=== PATIENT | male | born 1990 | race Caucasian/White ===

== ENCOUNTER 2017-01-22 02:44 | Emergency (ER) | payer OTHER ==
[~2017-01-22] VITALS: Ht 177.8 cm; Wt 80.0 kg
[2017-01-22 02:53] VITALS: TEMP 36.9; Ht 177.8 cm; Wt 80.0 kg
[2017-01-22 02:55] VITALS: O2SAT 96
--- NOTE | 2017-01-22 03:08 | EMERGENCY ROOM VISIT NOTE ---
History Report prepared by Harrison: Silverio See Under the Supervision of: Dr. Nancie Bowman D.O. First contact with patient: 02:45 Chief Complaint: ALCOHOL OVERDOSE Stated Complaint: ALCOHOL OVERDOSE History of Present Illness The patient is a 26 year old male who presents to the Emergency Room via [employer] for alcohol intoxication. The patient states that he was walking home, when he fell asleep on the sidewalk. He notes that he was at [employer] , and left for home at 0200. He claims that he lives in [place], and was going to walk from [employer] to his house. The patient denies any pain or injuries from this evening. He notes a history of a chronic back pain and intermittent bladder pain. Source of History: patient Onset: Shortly [employer] Position: other (EtOH intox) Quality: other (EtOH intox) Note: Denies any traumatic injuries Review of Systems See HPI for pertinent positives & negatives. A total of 10 systems reviewed and were otherwise negative. Past Medical & Surgical Lumbar back pain Family History No significant family history Social History Smoking Status: Never Smoker Marital Status: single Housing Status: lives with roommate Occupation Status: employed Current/Historical Medications No Active Prescriptions or Reported Meds Allergies Coded Allergies: Penicillins (Unverified Allergy, Mild, 01/22/17) Physical Exam Vital Signs Date Time Temp Pulse Resp B/P (MAP) Pulse Ox O2 Delivery O2 Flow Rate FiO2 01/22/17 05:55 92 01/22/17 05:44 22 01/22/17 05:37 92 95 01/22/17 05:31 116/62 01/22/17 05:22 96 94 01/22/17 05:07 93 93 01/22/17 05:01 116/56 01/22/17 04:52 94 94 01/22/17 04:47 93 22 94 01/22/17 04:32 92 94 01/22/17 04:31 106/54 01/22/17 04:25 95 01/22/17 04:17 104 14 95 01/22/17 04:12 16 97 01/22/17 04:01 113/55 01/22/17 03:57 90 94 01/22/17 03:42 91 94 01/22/17 03:31 112/59 01/22/17 03:27 96 22 94 01/22/17 03:12 101 16 98 01/22/17 03:07 110 15 157/91 99 Room Air 01/22/17 02:59 115 26 01/22/17 02:55 96 Room Air 01/22/17 02:53 36.9 133 22 154/116 96 Room Air 01/22/17 02:52 120 01/22/17 02:50 154/116 Physical Exam Gen.: The patient is pleasant and smells of alcohol. HEENT: Head - normocephalic and atraumatic Pupils are 4 mm and sluggishly reactive to light. Extraocular eye muscles are intact, and sclera are anicteric. Nose - moist nasal mucosa without discharge. Mouth - moist buccal mucosa. Oropharynx is nonerythematous and there is no tonsillar exudate or edema noted. Neck: Supple; no JVD, nuchal rigidity, cervical lymphadenopathy. Heart: Tachycardic rate with normal rhythm. There is a normal S1 and S2 with no murmurs, clicks, or gallops appreciated. Lungs: Clear to auscultation bilaterally with no wheezes, rales, or rhonchi. Abdomen: Soft, completely nontender, nondistended, with good bowel sounds. There are no palpable pulsatile masses or hepatosplenomegaly. There is no guarding, rigidity, or rebound noted. Extremities: No evidence of cyanosis, clubbing, or edema. There are easily palpable peripheral pulses. Skin: warm and dry with good turgor and no rashes. Medical Decision & Procedures Laboratory Results 01/22/17 03:12 Test 01/22/17 03:12 Anion Gap 8.0 mmol/L (3-11) Est Creatinine Clear Calc Drug Dose 105.1 ml/min Estimated GFR () 106.8 Estimated GFR (Non- 92.2 BUN/Creatinine Ratio 14.7 (10-20) Calcium Level 8.2 mg/dl (8.5-10.1) Ethyl Alcohol mg/dL 230.0 mg/dl (0-3) Laboratory results per my review. ED Course 0255: Past medical records reviewed. The patient was evaluated in room B12. A complete history and physical exam was performed. Labs were drawn as above. The patient was placed in the prone position to avoid aspiration. He was observing the cardiac cath tech and pulse oximeter. 0411: The patient is sound asleep and hemodynamically stable at this time. 0428: The patient will remain in bed until his LESLY drops to a safe level for discharge. 0620: The patient is awake and is calling a friend for a ride home at this time. The patient will be discharged home when he finds transportation. Medical Decision The patient is a 26 year old male who presents to the Emergency Department for Alcohol Intoxication. Differential Diagnosis includes; Alcohol overdose, drug intoxication, hypoglycemia, head injury. Laboratory studies were reviewed and show; Alcohol of 230, Glucose of 97, and normal renal function. He was allowed to sober up here in the ER. The patient denies being an alcoholic. I've encouraged the patient to avoid such excessive alcohol use in the future. Impression Primary Impression: Alcohol overdose Scribe Attestation The scribe's documentation has been prepared under my direction and personally reviewed by me in its entirety. I confirm that the note above accurately reflects all work, treatment, procedures, and medical decision making performed by me. Departure Information Dispostion Home / Self-Care Prescriptions No Active Prescriptions or Reported Meds Referrals No Doctor, Assigned (PCP) Forms HOME CARE DOCUMENTATION FORM, IMPORTANT VISIT INFORMATION Patient Instructions My [facility] Additional Instructions Rest. Take tylenol for headache Take plenty of clear liquids today. Avoid such excessive alcohol use in the future. Problem Qualifiers Primary Impression: Alcohol overdose Encounter type: initial encounter Injury intent: accidental or unintentional Qualified Codes: T51.91XA - Toxic effect of unspecified alcohol , accidental (unintentional), initial encounter
[2017-01-22 04:13] LABS: BUN/CREATININE RATIO 14.7 (10-20); CALCIUM 8.2 mg/dl (8.5-10.1); CREATININE 1.1 mg/dl (0.60-1.40); POTASSIUM 3.6 mmol/L (3.5-5.1)
[2017-01-22 06:38] VITALS: BP 144/94; PULSE 103; O2SAT 98
== END 2017-01-22 06:39 | disposition home or self-care (01) ==
LOC: EDBD 02:44 → C.EDB 02:45
DX: T51.0X1A Toxic effect of ethanol, accidental (unintentional), initial encounter (principal); F10.929 Alcohol use, unspecified with intoxication, unspecified; Y90.7 Blood alcohol level of 200-239 mg/100 ml; G89.29 Other chronic pain; M54.5 Low back pain